=== PATIENT | female | born 1945 | race Caucasian/White ===

== ENCOUNTER 2019-12-08 06:00 | Outpatient (RCR) | payer MEDICARE, SELFPAY | END 2020-01-06 23:59 | disposition home or self-care (01) | LOC: MPT 06:00 | PROVIDERS: PCP Nurse Practitioner; Visit Provider Nurse Practitioner | DX: G89.29 Other chronic pain (principal); M54.5 Low back pain | CPT/HCPCS: 97110; 97140; 97161; G0283 ==

== ENCOUNTER 2020-01-07 06:00 | Outpatient (RCR) | payer MEDICARE, SELFPAY | END 2020-02-06 23:59 | disposition home or self-care (01) | LOC: MPT 06:00 | PROVIDERS: PCP Nurse Practitioner; Visit Provider Nurse Practitioner | DX: M54.5 Low back pain (principal) | CPT/HCPCS: 97110; 97140; G0283 ==

== ENCOUNTER 2020-03-03 06:00 | Outpatient (RCR) | payer MEDICARE, SELFPAY | END 2020-03-08 23:59 | disposition home or self-care (01) | LOC: MPT 06:00 | PROVIDERS: PCP Nurse Practitioner; Visit Provider Physician Assistant | DX: Z98.1 Arthrodesis status (principal) | CPT/HCPCS: 97110; 97161 ==

== ENCOUNTER 2020-03-09 06:00 | Outpatient (RCR) | payer MEDICARE, SELFPAY | END 2020-04-07 23:59 | disposition home or self-care (01) | LOC: MPT 06:00 | PROVIDERS: PCP Nurse Practitioner; Visit Provider Physician Assistant | DX: Z47.89 Encounter for other orthopedic aftercare (principal); Z98.890 Other specified postprocedural states | CPT/HCPCS: 97110; 97116; G0283 ==

== ENCOUNTER 2020-04-08 06:00 | Outpatient (RCR) | payer MEDICARE, SELFPAY | END 2020-05-08 23:59 | disposition home or self-care (01) | LOC: MPT 06:00 | PROVIDERS: PCP Nurse Practitioner; Visit Provider Physician Assistant | DX: Z47.89 Encounter for other orthopedic aftercare (principal) | CPT/HCPCS: 97110 ==

== ENCOUNTER 2020-06-26 15:02 | Emergency (ER) | payer MEDICARE, SELFPAY ==
[2020-06-26] VITALS (23 sets, daily range): BP systolic 94–146; BP diastolic 69–95; PULSE 77–109; RESP 14–28; TEMP 37.4; O2SAT 82–100; BMI 29.2
--- NOTE | 2020-06-26 15:24 | MRR_ITS ---
PROCEDURE INFORMATION: Exam: MR Lumbar Spine Without Contrast. Exam date and time: 06/26/2020 3:25 PM Age: 75 years old Clinical indication: Prior surgery; Surgery date: 6+ months; Surgery type: Lumber 2 months ago on a disk; Patient HX: Patient unable to walk; Additional info: Over flow incont/fecal incont TECHNIQUE: Imaging protocol: Multiplanar magnetic resonance images of the lumbar spine without intravenous contrast. COMPARISON: No relevant prior studies available. FINDINGS: Vertebrae: Vertebral body heights are preserved. No compression fractures are noted. Vertebral alignment is physiologic. Spinal cord: Distal spinal cord and conus medullaris appear normal. No cord lesions. No cord compression. T12-L1: Normal disc height and signal intensity. No disc bulge or protrusion. No spinal canal or neural foraminal stenosis. L1-L2: Normal disc height and signal intensity. Mild degenerative facet joint changes. No disc bulge or protrusion. No spinal canal or neural foraminal stenosis. L2-L3: Normal disc height and signal intensity. No disc bulge or protrusion. Mild degenerative facet joint changes. No spinal canal or neural foraminal stenosis. L3-L4: Normal disc height. Minimal diffuse disc bulge. Mild degeneration of the facet joints. No spinal canal or neural foraminal stenosis. L4-L5: Status post right hemilaminotomy. Mild degenerative disc narrowing. 3 mm recurrent right paracentral disc protrusion versus postop fibrosis. This effaces the anterior epidural space, and abuts the right traversing L5 nerve within the lateral recess. The central spinal canal is mildly stenotic, measuring 9 mm in AP dimension. The right neural foramen demonstrates moderate stenosis. The left neural foramen demonstrates mild stenosis. L5-S1: Normal disc height. Mild disc bulge. Redundancy of the ligamentum flavum. No spinal canal or neural foraminal stenosis. Soft tissues: Unremarkable. MR/MR lumbar spine wo con* [id number] IMPRESSION: 1. Distal spinal cord and conus medullaris appear normal. No cord lesions. No cord compression. 2. Postop change of right hemilaminotomy at L4-L5. There is postop fibrosis versus small, 3 mm recurrent disc protrusion in the right paracentral area at this level. This is associated with possible impingement of the right L5 nerve. Mild central spinal canal stenosis and moderate right foraminal stenosis also noted at this level. 3. Additional mild spondylosis throughout the lumbar spine as discussed above. No severe spinal canal stenosis or compression of the thecal sac noted at any level.
--- NOTE | 2020-06-26 15:32 | CTR_ITS ---
PROCEDURE INFORMATION: Exam: CT Head Without Contrast Exam date and time: 06/26/2020 4:03 PM Age: 75 years old Clinical indication: Altered mental status/memory loss; Additional info: AMS TECHNIQUE: Imaging protocol: Computed tomography of the head without contrast. Radiation optimization: All CT scans at this facility use at least one of these dose optimization techniques: automated exposure control; mA and/or kV adjustment per patient size (includes targeted exams where dose is matched to clinical indication); or iterative reconstruction. COMPARISON: No relevant prior studies available. RADIATION DOSE METRICS: Total DLP (mGy-cm): 911.35 FINDINGS: Brain: Mild parenchymal volume loss noted. No parenchymal edema identified. No intracranial hemorrhage noted. Cerebral ventricles: Severe dilatation of the lateral ventricles and 3rd ventricle. The 4th ventricle is relatively normal in size. 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 Bones/joints: Unremarkable. No acute fracture. Paranasal sinuses: The paranasal sinuses, as demonstrated, appear clear. Mastoid air cells: The mastoid air cells are clear bilaterally. Soft tissues: Unremarkable. CT/CT head wo con* [id number] IMPRESSION: 1. Severe dilatation of the lateral ventricles and 3rd ventricle. The 4th ventricle is relatively normal in size. 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 No focal mass demonstrated. Consider MRI of the brain for further evaluation. 2. No intracranial hemorrhage or edema demonstrated. Radiation Dose CTDIVOL = (mGy): DLP = 911.35 (mGy-cm)
--- NOTE | 2020-06-26 15:39 | XRR_ITS ---
PROCEDURE INFORMATION: Exam: XR Chest, 1 View Exam date and time: 06/26/2020 3:41 PM Age: 75 years old Clinical indication: Cough and dyspnea; Additional info: Dyspnea/cough TECHNIQUE: Imaging protocol: XR of the chest Views: 1 view. COMPARISON: No relevant prior studies available. FINDINGS: Lungs: No consolidation. Pleural space: No pleural effusion. No pneumothorax. Heart/Mediastinum: No cardiomegaly. Bones/joints: Postop change right shoulder. Mild degenerative spine changes are noted. XR/XR chest 1V portable [id number] IMPRESSION: No acute cardiopulmonary disease demonstrated.
--- NOTE | 2020-06-26 15:40 | ECG_ITS ---
[facility] Test Date: 2020-06-26 Pat Name: Chaya Cordon Department: Room: Gender: Female Cathode Washer: : 1945 Requested By: Rey Youssef Order Number: [id number] Lucinda MD: Anaid Maxwell M.D. Measurements Intervals [place] Rate: 85 P: 50 ND: 172 QRS: 15 QRSD: 85 T: 22 QT: 370 QTc: 440 Interpretive Statements SINUS RHYTHM WITH FREQUENT SUPRAVENTRICULAR PREMATURE COMPLEXES POSSIBLE LEFT ATRIAL ENLARGEMENT [-0.1mV P WAVE IN V1/V2] NONSPECIFIC ST & T-WAVE ABNORMALITY No previous ECG available for comparison Electronically Signed On 06-26-2020 21:57:23 MEDICAL ASSISTANT SUPERVISOR by Anaid Maxwell M.D. [id number]
--- NOTE | 2020-06-26 15:48 | ED_ITS ---
Documented by User: Rey Haddad DO 06/28/20 06:33 HPI - Dizziness General: Chief Complaint: Dizziness Stated Complaint: UNABLE TO URINATE Time Seen by Provider: 06/26/20 15:09 History of Present Illness: HPI Narrative: 75-year-old female presents emergency room complaining of inability to urinate and fecal incontinence. On further discussion she tells me she had a back surgery about 3 to 4 months ago but states that was at [facility] in [facility] when she gets really confused and we try to pressure on further details. She also states she moved to this area 4 to 5 years ago and becomes very unsure about when her surgery was. She denies chest pain or shortness of breath denies dysuria urgency or frequency. On placement of a catheter she is 400 out on her bladder. She is not been able to drive over the last couple of days initially there is no family present at the bedside. MD elicited complaint: difficulty walking Pertinent past history: other (Previous lumbar surgery for disc impingement) Onset (ago): day(s) Timing: gradual onset Severity: severe Description: difficulty walking Exacerbating factors: movement/ambulation and standing Relieving factors: lying down Associated symptoms: Reports weakness; Denies no associated symptoms, change in hearing, chest pain, chills, cough, diaphoresis, ear discharge, ear pressure, fevers/chills, headache(s), malaise, nausea, nasal congestion, palpitations, rash, short of breath, syncope, tinnitus or vomiting Associated neuro symptoms: Reports extremity weakness and gait changes; Deny no associated symptoms, confusion, difficulty speaking, dysphagia, diplopia, facial numbness, facial weakness, numbness in extremities or visual changes Review of Systems Const: Denies: chills, malaise or diaphoresis ENMT: Denies: ear discharge, change in hearing, tinnitus or nasal congestion Card: Denies: chest pain, palpitations or syncope Resp: Denies: dyspnea, productive cough or non-productive cough GI: Denies: nausea, vomiting or dysphagia : Denies: flank pain, difficulty voiding, dysuria, urinary frequency or urinary urgency Skin/Breast: Denies: rash or pruritus Neuro: Denies: headache(s), numbness in extremities or confusion PFS ED PFSH: Medical History (Updated 06/27/20 @ 00:45 by Kenny Elena DO) Lumbar back pain Physical Exam Const: COMMON NORMALS: no acute distress GENERAL APPEARANCE: cooperative and comfortable ORIENTATION/CONSCIOUSNESS: Yes awake, Yes oriented to person, Yes oriented to place and Yes oriented to time HENMT: COMMON NORMALS: normocephalic, atraumatic and hearing grossly normal bilaterally HEAD & SCALP: normocephalic and atraumatic Neck/C-Spine: COMMON NORMALS: no JVD Resp: COMMON NORMALS: normal respiratory effort, No retractions, No use of accessory muscles and clear to auscultation bilaterally AUSCULTATION: clear to auscultation bilaterally Cardio: COMMON NORMALS: no JVD, regular rate, regular rhythm and No murmurs present (Cardio) RATE: regular rate RHYTHM: regular rhythm GI: COMMON NORMALS: Soft to palpation and No hepatosplenomegaly present AUSCULTATION: Yes normoactive bowel sounds PALPATION: Yes Soft to palpation, No Tenderness to palpation present (GI), No Guarding due to palpation present (GI) and Yes No hepatosplenomegaly present Extremity: COMMON NORMALS: normal to inspection, capillary refill normal, no clubbing, cyanosis or edema, no calf tenderness and no pedal edema Neuro: SENSORIUM/ORIENTATION: Yes oriented to person, Yes oriented to place and Yes oriented to time Skin: COMMON NORMALS: no rashes or lesions noted GENERAL SKIN EXAM: no lynn hes or lesions noted Course Vital Signs: Vital signs: Vital Signs Temperature 99.4 F 06/26/20 15:06 Pulse Rate 102 H 06/27/20 01:53 Respiratory Rate 24 H 06/27/20 01:53 Blood Pressure 170/102 06/27/20 01:53 Pulse Oximetry 94 06/27/20 01:53 MDM - Dizziness MDM Narrative: Medical decision making narrative: Care turned over to Dr. Elena at change of shift. See his notes for final diagnosis and disposition. Lab Data: Labs: Lab Results 06/26/20 06/26/20 06/26/20 Range/Units 15:31 15:38 15:45 WBC 8.7 (4.0-10.0) 10^3/ uL RBC 4.72 (4.1-5.3) 10^6/u L Hgb 12.3 (11.5-15.3) g/dL Hct 39.6 (37.0-47.0) % MCV 83.9 (81-99) fL MCH 26.1 L (28.0-34.0) pg MCHC 31.1 (30.0-36.0) g/dL RDW 15.0 (12.1-15.1) % Plt Count 139 (130-400) 10^3/c mm MPV 12.2 H (7.4-10.4) fL Neut % (Auto) 69.9 % Lymph % (Auto) 19.3 % [place] % (Auto) 9.7 % Eos % (Auto) 0.3 % Baso % (Auto) 0.5 % Neut # (Auto) 6.09 (1.8-7.7) 10^3/u L Lymph # (Auto) 1.7 (0.8-4.8) 10^3/u L [place] # (Auto) 0.9 (0.2-0.9) 10^3/u L Eos # (Auto) 0.0 (0.0-0.8) 10^3/u L Baso # (Auto) 0.0 (0.0-0.1) 10^3/u L Nucleated RBC % (a uto) 0 % Nucleated RBCs # 0.0 /100WBC Sodium (136-145) mmol/L Potassium (3.5-5.1) mmol/L Chloride (98-107) mmol/L Carbon Dioxide (22-29) mmol/L Anion Gap (5-19) BUN (8-23) mg/dL Creatinine (0.5-0.9) mg/dL GFR Calculation Glucose (65-115) mg/dL POC Glucose 123 H (70-110) mg/dL Calculated Osmolal ity (285-295) mOsm/k g Calcium (8.5-10.5) mg/dL Total Bilirubin (0.15-1.2) mg/dL AST (0-32) U/L ALT (0-33) U/L Alkaline Phosphata se (35-105) IU/L Troponin T Baselin e (0-10) ng/L Troponin T 120 Min [place] (0-10) ng/L Delta Troponin T (0-10) ABS# Troponin T Hi Sens 6Hr (0-10) ng/L Troponin T Hi Sens 6Hr Delta (0-12) ng/L Total Protein (6.6-8.7) g/dL Albumin (3.5-5.2) g/dL Globulin (1.3-4.6) g/dL TSH (0.27-4.20) uIU/ mL Urine Color Dark yellow (Yellow) Urine Appearance Clear (CLEAR) Urine pH 5 (5-7) Ur Specific Gravit y 1.020 (1.005-1.030) Urine Protein 1+ H (Negative) Urine Glucose (UA) 2+ (Normal) Urine Ketones Negative (Negative) Urine Blood Neg (Negative) Urine Nitrate Negative (Negative) Urine Bilirubin 1+ H (Negative) Urine Urobilinogen 4 H (Negative) mg/dL Ur Leukocyte Fidelina ase Negative (Negative) Urine RBC None (0-2) /hpf Urine WBC 5-10 H (0-5) /hpf Ur Squamous Epith Cells None (0-5) /hpf Amorphous Sediment Not Reportable Urine Bacteria 1+ H (NONE) /hpf 06/26/20 06/26/20 06/26/20 Range/Units 15:45 15:45 17:32 WBC (4.0-10.0) 10^3/ uL RBC (4.1-5.3) 10^6/u L Hgb (11.5-15.3) g/dL Hct (37.0-47.0) % MCV (81-99) fL MCH (28.0-34.0) pg MCHC (30.0-36.0) g/dL RDW (12.1-15.1) % Plt Count (130-400) 10^3/c mm MPV (7.4-10.4) fL Neut % (Auto) % Lymph % (Auto) % [place] % (Auto) % Eos % (Auto) % Baso % (Auto) % Neut # (Auto) (1.8-7.7) 10^3/u L Lymph # (Auto) (0.8-4.8) 10^3/u L [place] # (Auto) (0.2-0.9) 10^3/u L Eos # (Auto) (0.0-0.8) 10^3/u L Baso # (Auto) (0.0-0.1) 10^3/u L Nucleated RBC % (a uto) % Nucleated RBCs # /100WBC Sodium 135 L (136-145) mmol/L Potassium 4.0 (3.5-5.1) mmol/L Chloride 100 (98-107) mmol/L Carbon Dioxide 23 (22-29) mmol/L Anion Gap 16.0 (5-19) BUN 12 (8-23) mg/dL Creatinine 1.0 H (0.5-0.9) mg/dL GFR Calculation Not Reportable Glucose 127 H (65-115) mg/dL POC Glucose (70-110) mg/dL Calculated Osmolal ity 281 L (285-295) mOsm/k g Calcium 8.7 (8.5-10.5) mg/dL Total Bilirubin 0.6 (0.15-1.2) mg/dL AST 42 H (0-32) U/L ALT 35 H (0-33) U/L Alkaline Phosphata se 177 H (35-105) IU/L Troponin T Baselin e 16 H (0-10) ng/L Troponin T 120 Min [place] 16.07 H (0-10) ng/L Delta Troponin T 0.07 (0-10) ABS# Troponin T Hi Sens 6Hr (0-10) ng/L Troponin T Hi Sens 6Hr Delta (0-12) ng/L Total Protein 6.1 L (6.6-8.7) g/dL Albumin 3.9 (3.5-5.2) g/dL Globulin 2.2 (1.3-4.6) g/dL TSH 1.45 (0.27-4.20) uIU/ mL Urine Color (Yellow) Urine Appearance (CLEAR) Urine pH (5-7) Ur Specific Gravit y (1.005-1.030) Urine Protein (Negative) Urine Glucose (UA) (Normal) Urine Ketones (Negative) Urine Blood (Negative) Urine Nitrate (Negative) Urine Bilirubin (Negative) Urine Urobilinogen (Negative) mg/dL Ur Leukocyte Fidelina ase (Negative) Urine RBC (0-2) /hpf Urine WBC (0-5) /hpf Ur Squamous Epith Cells (0-5) /hpf Amorphous Sediment Urine Bacteria (NONE) /hpf 06/26/20 Range/Units 21:52 WBC (4.0-10.0) 10^3/ uL RBC (4.1-5.3) 10^6/u L Hgb (11.5-15.3) g/dL Hct (37.0-47.0) % MCV (81-99) fL MCH (28.0-34.0) pg MCHC (30.0-36.0) g/dL RDW (12.1-15.1) % Plt Count (130-400) 10^3/c mm MPV (7.4-10.4) fL Neut % (Auto) % Lymph % (Auto) % [place] % (Auto) % Eos % (Auto) % Baso % (Auto) % Neut # (Auto) (1.8-7.7) 10^3/u L Lymph # (Auto) (0.8-4.8) 10^3/u L [place] # (Auto) (0.2-0.9) 10^3/u L Eos # (Auto) (0.0-0.8) 10^3/u L Baso # (Auto) (0.0-0.1) 10^3/u L Nucleated RBC % (a uto) % Nucleated RBCs # /100WBC Sodium (136-145) mmol/L Potassium (3.5-5.1) mmol/L Chloride (98-107) mmol/L Carbon Dioxide (22-29) mmol/L Anion Gap (5-19) BUN (8-23) mg/dL Creatinine (0.5-0.9) mg/dL GFR Calculation Glucose (65-115) mg/dL POC Glucose (70-110) mg/dL Calculated Osmolal ity (285-295) mOsm/k g Calcium (8.5-10.5) mg/dL Total Bilirubin (0.15-1.2) mg/dL AST (0-32) U/L ALT (0-33) U/L Alkaline Phosphata se (35-105) IU/L Troponin T Baselin e (0-10) ng/L Troponin T 120 Min [place] (0-10) ng/L Delta Troponin T (0-10) ABS# Troponin T Hi Sens 6Hr 17.07 H (0-10) ng/L Troponin T Hi Sens 6Hr Delta 1.07 (0-12) ng/L Total Protein (6.6-8.7) g/dL Albumin (3.5-5.2) g/dL Globulin (1.3-4.6) g/dL TSH (0.27-4.20) uIU/ mL Urine Color (Yellow) Urine Appearance (CLEAR) Urine pH (5-7) Ur Specific Gravit y (1.005-1.030) Urine Protein (Negative) Urine Glucose (UA) (Normal) Urine Ketones (Negative) Urine Blood (Negative) Urine Nitrate (Negative) Urine Bilirubin (Negative) Urine Urobilinogen (Negative) mg/dL Ur Leukocyte Fidelina ase (Negative) Urine RBC (0-2) /hpf Urine WBC (0-5) /hpf Ur Squamous Epith Cells (0-5) /hpf Amorphous Sediment Urine Bacteria (NONE) /hpf Discharge Plan Discharge Patient Disposition: Xfer Other Clinical Impression: Ataxia, Idiopathic normal pressure hydrocephalus Condition: Stable Referrals: Linsey Shannon VICE PRESIDENT OF MARKETING [Primary Care Provider] - Coding Level of Care Code ED Roll Contour Grinder for Chg Fwd Exam Comprehensive Documented by User: Kenny Elena DO 06/27/20 00:47 HPI - Dizziness General: Chief Complaint: Dizziness Stated Complaint: UNABLE TO URINATE Time Seen by Provider: 06/26/20 15:09 [facility] ED PFSH: Medical History (Updated 06/27/20 @ 00:45 by Kenny Elena DO) Lumbar back pain Course Consultations: Consultation #1: Esau, neurosurgery [facility] Consultation #2: Soumya hospitalist [facility] Time: 00:44 Vital Signs: Vital signs: Vital Signs Temperature 99.4 F 06/26/20 15:06 Pulse Rate 102 H 06/27/20 01:53 Respiratory Rate 24 H 06/27/20 01:53 Blood Pressure 170/102 06/27/20 01:53 Pulse Oximetry 94 06/27/20 01:53 MDM - Dizziness MDM Narrative: Medical decision making narrative: This is a 75-year-old lady checked out to me by Dr. Haddad at shift change. She presents with intermittent confusion, that seems to be worsening, some ataxia, and incontinence. She evidently has a history of hydrocephalus since childhood. She had also had a lumbar surgery, laminectomy, a few months ago. CT of the head initially showed severe dilatation of her ventricles, lateral and third, but not fourth. MRI was suggested.. White blood cell count 8.7. Hemoglobin 12. Creatinine is 1.0. Her chest x-ray is negative. Because of the history of lumbar disc disease, with incontinence, MRI of the lumbar spine was done, does not show any sign of cauda equina syndrome. MRI of the head was done again showing dilated ventricles sparing the fourth ventricle. The patient had had her lumbar surgery at [facility] in [place]. I spoke to the neurosurgeon coning machine operator. He reviewed her records, and notes that the same neurosurgeon, Dr. Thakur had seen her for her hydrocephalus previously as well, documenting severe dilated ventricles at that point a couple of years ago. Neurology follow-up was suggested. The patient evidently did not follow-up. Tonight, neurosurgery indicated there was nothing acute to be done surgically for this. He again suggested neurology consultation. The patient currently feels somewhat improved. She is able to answer simple questions. She is however significantly ataxic, and falls to the left mainly when standing and trying to walk. Without neurology services here, my hospitalist is uncomfortable keeping the patient. She lives at home, and cannot walk. I am hesitant to send her home. We are awaiting a call from the medicine service at [facility]. Spoke with the hospitalist service, they have agreed to take her in transfer. Lab Data: Labs: Lab Results 06/26/20 06/26/20 06/26/20 Range/Units 15:31 15:38 15:45 WBC 8.7 (4.0-10.0) 10^3/ uL RBC 4.72 (4.1-5.3) 10^6/u L Hgb 12.3 (11.5-15.3) g/dL Hct 39.6 (37.0-47.0) % MCV 83.9 (81-99) fL MCH 26.1 L (28.0-34.0) pg MCHC 31.1 (30.0-36.0) g/dL RDW 15.0 (12.1-15.1) % Plt Count 139 (130-400) 10^3/c mm MPV 12.2 H (7.4-10.4) fL Neut % (Auto) 69.9 % Lymph % (Auto) 19.3 % [place] % (Auto) 9.7 % Eos % (Auto) 0.3 % Baso % (Auto) 0.5 % Neut # (Auto) 6.09 (1.8-7.7) 10^3/u L Lymph # (Auto) 1.7 (0.8-4.8) 10^3/u L [place] # (Auto) 0.9 (0.2-0.9) 10^3/u L Eos # (Auto) 0.0 (0.0-0.8) 10^3/u L Baso # (Auto) 0.0 (0.0-0.1) 10^3/u L Nucleated RBC % (a uto) 0 % Nucleated RBCs # 0.0 /100WBC Sodium (136-145) mmol/L Potassium (3.5-5.1) mmol/L Chloride (98-107) mmol/L Carbon Dioxide (22-29) mmol/L Anion Gap (5-19) BUN (8-23) mg/dL Creatinine (0.5-0.9) mg/dL GFR Calculation Glucose (65-115) mg/dL POC Glucose 123 H (70-110) mg/dL Calculated Osmolal ity (285-295) mOsm/k g Calcium (8.5-10.5) mg/dL Total Bilirubin (0.15-1.2) mg/dL AST (0-32) U/L ALT (0-33) U/L Alkaline Phosphata se (35-105) IU/L Troponin T Baselin e (0-10) ng/L Troponin T 120 Min [place] (0-10) ng/L Delta Troponin T (0-10) ABS# Troponin T Hi Sens 6Hr (0-10) ng/L Troponin T Hi Sens 6Hr Delta (0-12) ng/L Total Protein (6.6-8.7) g/dL Albumin (3.5-5.2) g/dL Globulin (1.3-4.6) g/dL TSH (0.27-4.20) uIU/ mL Urine Color Dark yellow (Yellow) Urine Appearance Clear (CLEAR) Urine pH 5 (5-7) Ur Specific Gravit y 1.020 (1.005-1.030) Urine Protein 1+ H (Negative) Urine Glucose (UA) 2+ (Normal) Urine Ketones Negative (Negative) Urine Blood Neg (Negative) Urine Nitrate Negative (Negative) Urine Bilirubin 1+ H (Negative) Urine Urobilinogen 4 H (Negative) mg/dL Ur Leukocyte Fidelina ase Negative (Negative) Urine RBC None (0-2) /hpf Urine WBC 5-10 H (0-5) /hpf Ur Squamous Epith Cells None (0-5) /hpf Amorphous Sediment Not Reportable Urine Bacteria 1+ H (NONE) /hpf 06/26/20 06/26/20 06/26/20 Range/Units 15:45 15:45 17:32 WBC (4.0-10.0) 10^3/ uL RBC (4.1-5.3) 10^6/u L Hgb (11.5-15.3) g/dL Hct (37.0-47.0) % MCV (81-99) fL MCH (28.0-34.0) pg MCHC (30.0-36.0) g/dL RDW (12.1-15.1) % Plt Count (130-400) 10^3/c mm MPV (7.4-10.4) fL Neut % (Auto) % Lymph % (Auto) % [place] % (Auto) % Eos % (Auto) % Baso % (Auto) % Neut # (Auto) (1.8-7.7) 10^3/u L Lymph # (Auto) (0.8-4.8) 10^3/u L [place] # (Auto) (0.2-0.9) 10^3/u L Eos # (Auto) (0.0-0.8) 10^3/u L Baso # (Auto) (0.0-0.1) 10^3/u L Nucleated RBC % (a uto) % Nucleated RBCs # /100WBC Sodium 135 L (136-145) mmol/L Potassium 4.0 (3.5-5.1) mmol/L Chloride 100 (98-107) mmol/L Carbon Dioxide 23 (22-29) mmol/L Anion Gap 16.0 (5-19) BUN 12 (8-23) mg/dL Creatinine 1.0 H (0.5-0.9) mg/dL GFR Calculation Not Reportable Glucose 127 H (65-115) mg/dL POC Glucose (70-110) mg/dL Calculated Osmolal ity 281 L (285-295) mOsm/k g Calcium 8.7 (8.5-10.5) mg/dL Total Bilirubin 0.6 (0.15-1.2) mg/dL AST 42 H (0-32) U/L ALT 35 H (0-33) U/L Alkaline Phosphata se 177 H (35-105) IU/L Troponin T Baselin e 16 H (0-10) ng/L Troponin T 120 Min [place] 16.07 H (0-10) ng/L Delta Troponin T 0.07 (0-10) ABS# Troponin T Hi Sens 6Hr (0-10) ng/L Troponin T Hi Sens 6Hr Delta (0-12) ng/L Total Protein 6.1 L (6.6-8.7) g/dL Albumin 3.9 (3.5-5.2) g/dL Globulin 2.2 (1.3-4.6) g/dL TSH 1.45 (0.27-4.20) uIU/ mL Urine Color (Yellow) Urine Appearance (CLEAR) Urine pH (5-7) Ur Specific Gravit y (1.005-1.030) Urine Protein (Negative) Urine Glucose (UA) (Normal) Urine Ketones (Negative) Urine Blood (Negative) Urine Nitrate (Negative) Urine Bilirubin (Negative) Urine Urobilinogen (Negative) mg/dL Ur Leukocyte Fidelina ase (Negative) Urine RBC (0-2) /hpf Urine WBC (0-5) /hpf Ur Squamous Epith Cells (0-5) /hpf Amorphous Sediment Urine Bacteria (NONE) /hpf 06/26/20 Range/Units 21:52 WBC (4.0-10.0) 10^3/ uL RBC (4.1-5.3) 10^6/u L Hgb (11.5-15.3) g/dL Hct (37.0-47.0) % MCV (81-99) fL MCH (28.0-34.0) pg MCHC (30.0-36.0) g/dL RDW (12.1-15.1) % Plt Count (130-400) 10^3/c mm MPV (7.4-10.4) fL Neut % (Auto) % Lymph % (Auto) % [place] % (Auto) % Eos % (Auto) % Baso % (Auto) % Neut # (Auto) (1.8-7.7) 10^3/u L Lymph # (Auto) (0.8-4.8) 10^3/u L [place] # (Auto) (0.2-0.9) 10^3/u L Eos # (Auto) (0.0-0.8) 10^3/u L Baso # (Auto) (0.0-0.1) 10^3/u L Nucleated RBC % (a uto) % Nucleated RBCs # /100WBC Sodium (136-145) mmol/L Potassium (3.5-5.1) mmol/L Chloride (98-107) mmol/L Carbon Dioxide (22-29) mmol/L Anion Gap (5-19) BUN (8-23) mg/dL Creatinine (0.5-0.9) mg/dL GFR Calculation Glucose (65-115) mg/dL POC Glucose (70-110) mg/dL Calculated Osmolal ity (285-295) mOsm/k g Calcium (8.5-10.5) mg/dL Total Bilirubin (0.15-1.2) mg/dL AST (0-32) U/L ALT (0-33) U/L Alkaline Phosphata se (35-105) IU/L Troponin T Baselin e (0-10) ng/L Troponin T 120 Min [place] (0-10) ng/L Delta Troponin T (0-10) ABS# Troponin T Hi Sens 6Hr 17.07 H (0-10) ng/L Troponin T Hi Sens 6Hr Delta 1.07 (0-12) ng/L Total Protein (6.6-8.7) g/dL Albumin (3.5-5.2) g/dL Globulin (1.3-4.6) g/dL TSH (0.27-4.20) uIU/ mL Urine Color (Yellow) Urine Appearance (CLEAR) Urine pH (5-7) Ur Specific Gravit y (1.005-1.030) Urine Protein (Negative) Urine Glucose (UA) (Normal) Urine Ketones (Negative) Urine Blood (Negative) Urine Nitrate (Negative) Urine Bilirubin (Negative) Urine Urobilinogen (Negative) mg/dL Ur Leukocyte Fidelina ase (Negative) Urine RBC (0-2) /hpf Urine WBC (0-5) /hpf Ur Squamous Epith Cells (0-5) /hpf Amorphous Sediment Urine Bacteria (NONE) /hpf Discharge Plan Discharge Patient Disposition: Xfer Other Clinical Impression: Ataxia, Idiopathic normal pressure hydrocephalus Condition: Stable Referrals: Linsey Shannon NP [Primary Care Provider] - Coding Level of Care Code ED Roll Contour Grinder for Chg Fwd Exam Comprehensive
[2020-06-26 16:19] LABS: Glucose Point of Care 123 mg/dL (70-110)
[2020-06-26 16:39] LABS: Basophils % 0.5 %; Eosinophils % 0.3 %; Hematocrit 39.6 % (37.0-47.0); Hemoglobin 12.3 g/dL (11.5-15.3); Lymphocytes # 1.7 10^3/uL (0.8-4.8); Lymphocytes % 19.3 %; Mean Corpuscular HGB Conc 31.1 g/dL (30.0-36.0); Mean Corpuscular Hemoglobin 26.1 pg (28.0-34.0); Mean Corpuscular Volume 83.9 fL (81-99); Mean Platelet Volume 12.2 fL (7.4-10.4); Monocytes # 0.9 10^3/uL (0.2-0.9); Monocytes % 9.7 %; Neutrophils # 6.09 10^3/uL (1.8-7.7); Neutrophils % 69.9 %; Nucleated Red Blood Cells % 0 %; Platelet Count 139 10^3/cmm (130-400); Red Blood Count 4.72 10^6/uL (4.1-5.3); White Blood Count 8.7 10^3/uL (4.0-10.0)
[2020-06-26 17:08] LABS: Troponin(5th) Baseline 16 ng/L (0-10)
[2020-06-26 17:15] LABS: Alanine Aminotransferase 35 U/L (0-33); Albumin Level 3.9 g/dL (3.5-5.2); Alkaline Phosphatase 177 IU/L (35-105); Aspartate Amino Transferase 42 U/L (0-32); Blood Urea Nitrogen 12 mg/dL (8-23); Calcium 8.7 mg/dL (8.5-10.5); Carbon Dioxide 23 mmol/L (22-29); Chloride 100 mmol/L (98-107); Globulin 2.2 g/dL (1.3-4.6); Glucose 127 mg/dL (65-115); Osmolality Calculated 281 mOsm/kg (285-295); Sodium 135 mmol/L (136-145); Thyroid Stimulating Hormone 1.45 uIU/mL (0.27-4.20); Total Bilirubin 0.6 mg/dL (0.15-1.2); Total Protein 6.1 g/dL (6.6-8.7)
--- NOTE | 2020-06-26 17:40 | ECG_ITS ---
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 [id number] f
[2020-06-26 17:43] LABS: Add Urine Culture? No; Bacteria Urine 1+ /hpf; Bilirubin Urine 1+ (Negative); Blood Urine Neg (Negative); Glucose Urine UA 2+ (Normal); Ketones Urine Negative (Negative); Leukocyte Esterase Urine Negative (Negative); Nitrate Urine Negative (Negative); Protein Urine 1+ (Negative); Urine Appearance Clear (CLEAR); Urine Color Dark Yellow (Yellow); Urobilinogen Urine 4 mg/dL (Negative); pH Urine 5 (5-7)
--- NOTE | 2020-06-26 18:08 | MRR_ITS ---
PROCEDURE INFORMATION: Exam: MR Head Without Contrast Exam date and time: 06/26/2020 6:09 PM Age: 75 years old Clinical indication: Other: Intracranial hypertension; Additional info: Benigh intracranial hypertension TECHNIQUE: Imaging protocol: MR of the head without contrast. COMPARISON: CT head wo con* [id number] 06/26/2020 4:12 PM FINDINGS: Limitations: The study is limited by patient motion artifact. Brain: No intracranial hemorrhage noted. No parenchymal edema identified. Punctate foci of increased white matter signal are demonstrated on the T2 FLAIR images, consistent with mild microangiopathic white matter disease. 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 No restriction of diffusion demonstrated on DWI images to suggest acute infarct. Cerebral ventricles: Severe dilatation of the bilateral lateral ventricles. The 3rd ventricle is dilated as well. The 4th ventricle appears relatively normal in size. There is no focal mass identified. Bones/joints: Unremarkable. Paranasal sinuses: Retention cyst noted in the right maxillary sinus. The paranasal sinuses are otherwise clear. No acute sinusitis. Mastoid air cells: No mastoid effusion. Orbits: Unremarkable. Soft tissues: Unremarkable. MR/MR head wo con* [id number] IMPRESSION: 1. The study is limited by patient motion artifact. 2. Severe dilatation of the bilateral lateral ventricles, consistent with hydrocephalus. The 3rd ventricle is moderately dilated. The 4th ventricle appears relatively normal in size. There is no focal mass identified. 3. Punctate foci of increased white matter signal are demonstrated on the T2 FLAIR images, consistent with mild microangiopathic white matter disease. 4. 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 No acute infarct. No intracranial hemorrhage.
[2020-06-26 18:26] LABS: Troponin 5 2HR 16.07 ng/L (0-10); Troponin 5 2HR Delta 0.07 ABS# (0-10)
--- NOTE | 2020-06-26 21:40 | ECG_ITS ---
[facility] Test Date: 2020-06-26 Pat Name: Chaya Cordon Department: Room: Gender: Female Proc Tech: : 1945 Requested By: Rey Youssef Order Number: [id number] Lucinda MD: Anaid Maxwell M.D. 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 [id number]
[2020-06-26 22:17] LABS: Troponin 5 6HR 17.07 ng/L (0-10); Troponin 5 6HR Delta 1.07 ng/L (0-12)
[2020-06-27] VITALS (9 sets, daily range): BP systolic 144–170; BP diastolic 81–102; PULSE 100–107; RESP 23–30; O2SAT 94–97
== END 2020-06-27 02:25 | disposition other institution (70) ==
PROVIDERS: Family Medicine; Emergency Provider Emergency Medicine; PCP Nurse Practitioner
DX: R27.0 Ataxia, unspecified (principal); G91.2 (Idiopathic) normal pressure hydrocephalus
CPT/HCPCS: 12345; 36415; 36416; 51702; 70450; 70551; 71045; 72148; 80053; 81001; 82962; 84443; 84484; 85025; 87040; 93005; 99284; 99285

== ENCOUNTER → 2021-01-18 08:46 | Outpatient (BNVA) | payer MEDICARE, SELFPAY | PROVIDERS: PCP Nurse Practitioner; Referring Provider Nurse Practitioner; Visit Provider Anesthesiology Pain Medicine | DX: M51.16 Intervertebral disc disorders with radiculopathy, lumbar region (principal); M47.816 Spondylosis without myelopathy or radiculopathy, lumbar region; M79.661 Pain in right lower leg; Z98.890 Other specified postprocedural states; Z79.899 Other long term (current) drug therapy | CPT/HCPCS: 99205 ==

== ENCOUNTER → 2021-01-28 12:05 | Outpatient (BNVA) | payer MEDICARE, SELFPAY | PROVIDERS: PCP Nurse Practitioner; Visit Provider Anesthesiology Pain Medicine | DX: M54.16 Radiculopathy, lumbar region (principal); E11.9 Type 2 diabetes mellitus without complications | CPT/HCPCS: 64483; 64484; J1100; J3490 ==

== ENCOUNTER → 2021-02-15 12:28 | Outpatient (BNVA) | payer MEDICARE, SELFPAY | PROVIDERS: PCP Nurse Practitioner; Visit Provider Anesthesiology Pain Medicine | DX: M51.16 Intervertebral disc disorders with radiculopathy, lumbar region (principal); M51.17 Intervertebral disc disorders with radiculopathy, lumbosacral region; M47.816 Spondylosis without myelopathy or radiculopathy, lumbar region; M79.604 Pain in right leg; Z98.890 Other specified postprocedural states | CPT/HCPCS: 99213; 99214 ==

== ENCOUNTER → 2021-03-08 09:32 | Outpatient (BNVA) | payer MEDICARE, SELFPAY | PROVIDERS: PCP Nurse Practitioner; Visit Provider Anesthesiology Pain Medicine | DX: M51.16 Intervertebral disc disorders with radiculopathy, lumbar region (principal); M47.816 Spondylosis without myelopathy or radiculopathy, lumbar region; M79.604 Pain in right leg; Z98.890 Other specified postprocedural states; Z79.891 Long term (current) use of opiate analgesic | CPT/HCPCS: 99214 ==